=== PATIENT | female | born 1960 | race Caucasian/White ===

== ENCOUNTER 2016-09-09 16:20 | Emergency (ER) | payer BC, OTHER ==
[2016-09-09 16:27] VITALS: BP 123/83
--- NOTE | 2016-09-09 17:37 | ED ---
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 She was able to continue working, and thought it would improve, but today her pain is worse and it hurts to even hand picker her purse. She denies previous injury, N/T, incontinence of urine or stool, and no difficulty walking. - History of Current Complaint Chief Complaint: EDBackInjuryPain Stated Complaint: BACK INJURY Time Seen by Provider: 09/09/16 16:38 Hx Obtained From: Patient Onset/Duration: Sudden Onset Onset/Duration: Started Days Ago - 1 Timing: Constant Back Pain Location: Is Discrete @ - lumbar spine Severity Initially: Severe Severity Currently: Severe Pain Intensity: 7 Character: Aching, Spasmodic, Stiffness Aggravating Symptom(s): Movement Alleviating Symptom(s): Nothing Associated Signs And Symptoms: Positive: Pain with Weight Bearing. Negative: Bladder Incontinence, Bowel Incontinence Related History: Occupational Injury - Allergies/Home Medications Allergies/Adverse Reactions: Allergies Allergy/AdvReac Type Severity Reaction Status Date / Time Ketorolac Tromethamine Allergy Diarrhea Verified 09/09/16 16:25 [From Toradol] PMH/Surg Hx/FS Hx/Imm Hx Endocrine/Hematology History: Denies: Hx Diabetes, Hx Thyroid Disease Cardiovascular History: Denies: Hx Hypertension Respiratory History: Denies: Hx Asthma, Hx Chronic Obstructive Pulmonary Disease (COPD) GI History: Reports: Hx Diverticulosis Denies: Hx Ulcer Infectious Disease History: Yes Infectious Disease History: Denies: Hx Hepatitis, Hx Human Immunodeficiency Virus (HIV), Traveled Outside the [place] in Last 30 Days - Family History Known Family History: Positive: Unknown - adopted - Social History Occupation: Employed Full-time Lives: With Family Alcohol Use: None Hx Substance Use: No Substance Use Type: Reports: None Hx Tobacco Use: No Smoking Status (MU): Never Smoked Tobacco Review of Systems Positive: Myalgia. Negative: Decreased ROM, Edema Negative: Bruising Negative: Headache, Weakness, Paresthesia, Numbness All Other Systems Reviewed And Are Negative: Yes Physical Exam Triage Information Reviewed: Yes Vital Signs On Initial Exam: Initial Vitals Temp Pulse Resp BP Pulse Ox 98.3 F 100 18 123/83 99 09/09/16 16:22 09/09/16 16:22 09/09/16 16:22 09/09/16 16:22 09/09/16 16:22 Vital Signs Reviewed: Yes Appearance: Positive: Well-Appearing, Well-Nourished, Pain Distress Skin: Positive: Warm, Dry, Soft Head/Face: Positive: Normal Head/Face Inspection Eyes: Positive: EOMI, OSBALDO ENT: Positive: Hearing grossly normal Neck: Positive: Supple, Nontender Respiratory/Lung Sounds: Positive: Breath Sounds Present Cardiovascular: Positive: RRR Musculoskeletal: Positive: Limited @ - FF, rotation to right and left and extension limited by pain; 5/5 strength with hip, knee and ankle flexion/ extension, Pain @ - TTP lumbar spine and paraspinal muscles. Negative: Edema Left, Edema Right Neurological: Positive: Sensory/Motor Intact, Alert, Oriented to Person Place, Time, NV Bundle Intact Distally, Abnormal Gait - antalgic Psychiatric: Positive: Affect/Mood Appropriate AVPU Assessment: Alert Diagnostics - Vital Signs Vital Signs Temp Pulse Resp BP Pulse Ox 09/09/16 16:22 98.3 F 100 18 123/83 99 - Laboratory Lab Statement: Any lab studies that have been ordered have been reviewed, and results considered in the medical decision making process. Back Pain Course/Dx - Course Course Of Treatment: Patient's CT abd/pelvis from 08/21/17 reviewed. - Diagnoses Differential Diagnosis/HQI/PQRI: Positive: Aneurysm, Arthritis, Cauda Equina Syndrome, Compressive Cord Syndrome, Herniated Disc, Strain, Sprain Provider Diagnoses: Strain of lumbar paraspinal muscle Discharge - Discharge Plan Condition: Stable Disposition: HOME Prescriptions: Cyclobenzaprine TAB* [Flexeril TAB*] 10 mg PO TID PRN #15 tab PRN Reason: Pain Patient Education Materials: Low Back Strain (ED) Forms: *Work Release Referrals: Jahaira Fernandes MD [Primary Care Provider] - Additional Instructions: Please take 600mg of ibuprofen three times daily with meals for the next 3-5 days. Add Flexeril for muscle relaxation. Rest and use heat as well. Follow-up with your primary care provider if your symptoms do not begin to improve in the next 5-7 days. Return to the emergency department if your symptoms worsen.
== END 2016-09-09 17:45 | disposition home or self-care (01) ==
LOC: ED 16:20
DX: S39.012A Strain of muscle, fascia and tendon of lower back, initial encounter (principal); X50.0XXA Overexertion from strenuous movement or load, initial encounter; Y93.F2 Activity, caregiving, lifting; Y92.9 Unspecified place or not applicable
CPT/HCPCS: 99282

== ENCOUNTER 2016-09-22 03:43 | Emergency (ER) | payer BC ==
--- NOTE | 2016-09-22 05:29 | ED ---
Karin Mcbride Janilya, scribed for Willem Krishnamurthy MD on 09/22/16 at 0455 . Throat Pain/Nasal Congestion - HPI Summary HPI Summary: A 56 y/o female [facility] [place] w/ a sudden onset of constant epistaxis starting tonight at 0000. Pt states "it started suddenly pouring out from both nostrils". She called her neighbor for help because she started panicking. Plugging the nose did not help. Similarly, the humidifier did not alleviate pt's Sx, hence her visit today at the hospital. - History of Current Complaint Chief Complaint: EDEpistaxis Hx Obtained From: Patient Onset/Duration: Sudden Onset, Lasting Hours, Still Present Severity: Moderate Associated Signs And Symptoms: Positive: Negative - Allergies/Home Medications Allergies/Adverse Reactions: Allergies Allergy/AdvReac Type Severity Reaction Status Date / Time Ketorolac Tromethamine Allergy Diarrhea Verified 09/09/16 16:25 [From Toradol] PMH/Surg Hx/FS Hx/Imm Hx Previously Healthy: Yes Endocrine/Hematology History: Denies: Hx Diabetes, Hx Thyroid Disease Cardiovascular History: Denies: Hx Hypertension Respiratory History: Denies: Hx Asthma, Hx Chronic Obstructive Pulmonary Disease (COPD) GI History: Reports: Hx Diverticulosis Denies: Hx Ulcer Infectious Disease History: No Infectious Disease History: Denies: Hx Hepatitis, Hx Human Immunodeficiency Virus (HIV), Traveled Outside the [place] in Last 30 Days - Family History Known Family History: Positive: Unknown - adopted - Social History Alcohol Use: None Hx Substance Use: No Substance Use Type: Reports: None Hx Tobacco Use: No Smoking Status (MU): Never Smoked Tobacco Review of Systems Negative: Fever Positive: Epistaxis All Other Systems Reviewed And Are Negative: Yes Physical Exam Triage Information Reviewed: Yes Vital Signs On Initial Exam: Initial Vitals Temp Pulse Resp BP Pulse Ox 98.7 F 93 18 154/84 99 09/22/16 04:00 09/22/16 04:00 09/22/16 04:00 09/22/16 04:00 09/22/16 04:00 Vital Signs Reviewed: Yes Appearance: Positive: Well-Appearing Skin: Positive: Warm Eyes: Positive: OSBALDO ENT: Positive: Other - dried blood in nares, no active bleeding noted Neck: Positive: Supple Respiratory/Lung Sounds: Positive: Clear to Auscultation Neurological: Positive: Normal Gait Psychiatric: Positive: Anxious Diagnostics - Vital Signs Vital Signs Temp Pulse Resp BP Pulse Ox 09/22/16 04:00 98.7 F 93 18 154/84 99 - Laboratory Lab Statement: Any lab studies that have been ordered have been reviewed, and results considered in the medical decision making process. Re-Evaluation - Re-Evaluation First Eval Re-Evaluation Time: 05:30 Change: Improved - no bleeding, will d/c EENT Course/Dx - Diagnoses Provider Diagnoses: Epistaxis Discharge - Discharge Plan Condition: Stable Disposition: HOME Patient Education Materials: Nosebleed (ED) Referrals: Jahaira Fernandes MD [Primary Care Provider] - Additional Instructions: Follow up with your ENT doctor as needed. The documentation as recorded by the Karin pruitt Janilya accurately reflects the service I personally performed and the decisions made by me, Willem Krishnamurthy MD.
[2016-09-22 06:00] VITALS: BP 148/76
== END 2016-09-22 05:59 | disposition home or self-care (01) ==
LOC: ED 03:43
DX: R04.0 Epistaxis (principal)
CPT/HCPCS: 99282

== ENCOUNTER 2018-11-20 20:55 | Emergency (ER) | payer BC ==
--- NOTE | 2018-11-20 21:16 | UC ---
Eye Complaint HPI - HPI Summary HPI Summary: 58 y/o female presents to the urgent care c/o left eye redness w/ mild discharge for the past 2 days. Pt also c.o of sinus pressure and pain w/ green nasal discharge and PND, sometimes w/ foul smell. Sinus infections has been for the past 6 weeks. Pt reports, she saw he PCP about 1 month ago who Rx her Amoxicillin PO. However, she thinks she needed a longer treatment since symptoms worsen. Pain is 4/10 and pressure like. Pt denies fever, cough, dizziness, SOB, PAK, chest pain, abdominal pain, N/v/d, photophobia, visual disturbance. She has taken OTC medication w/o any improvement. - History of Current Complaint Chief Complaint: UCEye Stated Complaint: EYE IRRITATION Time Seen by Provider: 11/20/18 21:13 Hx Obtained From: Patient Onset/Duration: Gradual Onset, Lasting Weeks - 6 weeks, Worse Since - 2 days ago w/ left eye redness and discharge Timing: Constant Severity Initially: Mild Severity Currently: Moderate Pain Intensity: 4 Pain Scale Used: 0-10 Numeric Location of Injury: Conjunctiva - left eye Character: Dull Aggravating Factor(s): Other - sinus congestion and drainage Alleviating Factor(s): Nothing Associated Signs And Symptoms: Positive: Drainage (Purulent) - mild onleft eye. Negative: Photophobia, Drainage (Clear), Vision Impairment Bilateral - Risk Factors Penetrating Injury Risk Factor: Negative Globe Rupture Risk Factors: Negative Acute Glaucoma Risk Factors: Negative Optic Artery Occlusion Risk Factors: Negative - Allergies/Home Medications Allergies/Adverse Reactions: Allergies Allergy/AdvReac Type Severity Reaction Status Date / Time ketorolac [From Toradol] AdvReac Diarrhea Verified 11/20/18 21:05 Home Medications: Home Medications Vitamins* 11/20/18 [History] PMH/Surg Hx/FS Hx/Imm Hx Previously Healthy: Yes Endocrine History: Diabetes Cardiovascular History: Hypertension Other Respiratory History: recurrent sinusitis - Surgical History Surgical History: Yes Surgery Procedure, Year, and Place: TUBAL LIGATION - Family History Known Family History: Positive: Unknown - adopted - Social History Occupation: Employed Full-time Lives: With Family Alcohol Use: None Substance Use Type: None Smoking Status (MU): Former Smoker Review of Systems All Other Systems Reviewed And Are Negative: Yes Constitutional: Positive: Negative Skin: Positive: Negative Eyes: Positive: Drainage - mild yellowish, Eye Redness - left eye ENT: Positive: Nasal Discharge - yellowish, Sinus Congestion, Sinus Pain/ Tenderness, Other - PND Respiratory: Positive: Negative Cardiovascular: Positive: Negative Gastrointestinal: Positive: Negative Genitourinary: Positive: Negative Motor: Positive: Negative Neurovascular: Positive: Negative Musculoskeletal: Positive: Negative Neurological: Positive: Negative Psychological: Positive: Negative Is Patient Immunocompromised?: No Physical Exam - Summary Physical Exam Summary: Vitals: reviewed General: Well developed, well-nourished female patient with NAD. Head and face: Normocephalic and atraumatic, Positive tenderness over the frontal and maxillary sinuses.. Eyes: Positive: LF Conjunctiva Inflamed - Visual acuity: WNL,Visual saldana: full to confrontation. PERRLA, EOMI intact w/out limitation or complaint of pain. eyelashes clear. mild tearing and yellowish drainage observed on left eye. No ciliary flush. No chemosis, No photophobia. Normal fundoscopic exam; no proptosis, exophthalmos, nystagmus. ENT: Ears and TM with normal limits. Nose: edematous and erythematous nasal mucosa with with yellowish discharge and erythematous mucosa. Pharynx with erythema, no exudate. Positive moderate yellowish PND Neck: Supple, no JVD, no carotid bruits and no lymphadenopathy. Lungs: clear, no rales, no rhonchi, no wheezes. CVS: RRR, S1 and S2 present no murmurs or gallops appreciated. Abdomen: soft nontender with positive bowel sounds. Extremities: no edema noted. Neuro: WNL. Skin: warm and dry Triage Information Reviewed: Yes Vital Signs: Initial Vital Signs Temp 97.9 F 11/20/18 21:00 Pulse 88 11/20/18 21:00 Resp 16 11/20/18 21:00 BP 149/80 11/20/18 21:00 Pulse Ox 99 11/20/18 21:00 Eye Complaint Course/Dx - Course Course Of Treatment: 58 y/o female presents to the urgent care c/o left eye redness w/ mild discharge for the past 2 days. Pt also c.o of sinus pressure and pain w/ green nasal discharge and PND, sometimes w/ foul smell. Sinus infections has been for the past 6 weeks. Pt reports, she saw he PCP about 1 month ago who Rx her Amoxicillin PO. However, she thinks she needed a longer treatment since symptoms worsen. Pain is 4/10 and pressure like. Pt denies fever, cough, dizziness, SOB, PAK, chest pain, abdominal pain, N/v/d, photophobia, visual disturbance. She has taken OTC medication w/o any improvement. Hx obtained. Pt w/ acute bacterial sinusitis and left eye bacterial conjunctivitis one examination. Pt with 6 weeks of symptoms getting worse. Pt Rx doxycycline PO and flonase nasal spray. first dose givne at the clinic tonight. Pt also Rx polytrim ophtalmic drops as directed below. Pt advised if symptoms do not improve or worsen to f/u with [facility] or PCP for further management.Pt' s BP is elevated today advised to decrease salt in diet, monitor BP and f/u with PCP for further management. Discharge instructions explained. Pt understood and agreed with plan of care. - Differential Dx/Diagnosis Differential Diagnosis/HQI/PQRI: Conjunctivitis, Penetrating Injury, Periorbital Cellulitis, Orbital Cellulitis, Uveitis, Other - sinusitis Provider Diagnosis: Acute bacterial sinusitis, Bacterial conjunctivitis of left eye, Uncontrolled hypertension Discharge - Sign-Out/Discharge Documenting (check all that apply): Patient Departure All imaging exams completed and their final reports reviewed: No Studies - Discharge Plan Condition: Stable Disposition: HOME Prescriptions: DOXYcycline CAP(*) [DOXYcycline 100MG CAP(*)] 100 mg PO BID #19 cap Fluticasone NASAL SPRAY 50MCG* [Flonase NASAL SPRAY 50MCG*] 2 spray BOTH NARES DAILY #1 btl Polymyx/Trimethoprim OPTH* [Polytrim OPHTH*] 1 drop LEFT EYE Q3H #1 btl Patient Education Materials: Sinusitis (ED), Conjunctivitis (ED) Referrals: Ronnie Figueroa, [employer] [Primary Care Provider] - 3 Days Additional Instructions: 1- Please increase fluid intake and rest. take full course of antibiotic to avoid resistance. Please take yogurt w/ probiotics or culturelle to protect your GI system 2-Use Flonase as directed to help drain fluid. Also buy saline drops to clear sinuses 3-Apply ophthalmic drops as directed on your left eye. Encourage hand washing to avoid spread. 4-Return to the clinic or PCP if symptoms do not improve for further management and treatment 5- Your BP is elevated today. please decrease salt in your diet, monitor BP and if it continues to be elevated please f/u with your PCP for further management. - Billing Disposition and Condition Condition: STABLE Disposition: Home
[2018-11-20] MEDS ORDERED: DOXYcycline CAP(*) 100 MG PO ONE (21:35)
[2018-11-20 22:02] VITALS: BP 138/70
== END 2018-11-20 22:00 | disposition home or self-care (01) ==
LOC: UCEAST 20:55
DX: J01.90 Acute sinusitis, unspecified (principal); J32.9 Chronic sinusitis, unspecified; B96.89 Other specified bacterial agents as the cause of diseases classified elsewhere; H10.32 Unspecified acute conjunctivitis, left eye; I10 Essential (primary) hypertension; E11.9 Type 2 diabetes mellitus without complications; Z87.891 Personal history of nicotine dependence; Z88.3 Allergy status to other anti-infective agents
CPT/HCPCS: 99212; A9270-GY; G0463

== ENCOUNTER 2019-01-11 21:52 | Emergency (ER) | payer BC ==
[2019-01-11 22:32] LABS: ABS Basophils 0.1 10^3/ul (0-0.2); ABS Eosinophils 0.2 10^3/ul (0-0.6); ABS Lymphocytes 1.7 10^3/ul (1.0-4.8); ABS Monocytes 0.5 10^3/ul (0-0.8); ABS Neutrophils 3.6 10^3/ul (1.5-7.7); Eosinophil % 2.6 %; Hematocrit 37 % (35-47); Hemoglobin 12.4 g/dL (12.0-16.0); Lymphocyte % 28.7 %; Mean Corpuscular HGB Conc 33 g/dL (31-36); Mean Corpuscular Hemoglobin 29 pg (27-31); Mean Corpuscular Volume 88 fL (80-97); Mean Platelet Volume 8.5 fL (7.4-10.4); Nucleated Red Blood Cells % 0.1; Platelet Count 201 10^3/uL (150-450); Red Blood Count 4.25 10^6 /uL (3.70-4.87); Red Cell Distribution Width 14 % (10.5-15); White Blood Count 5.9 10^3/uL (3.5-10.8)
[2019-01-11 22:48] LABS: Albumin 4.1 g/dL (3.2-5.2); Albumin/Globulin Ratio 1.4 (1-3); BUN/Creatinine Ratio 27.8 (8-20); C Reactive Protein 2.99 mg/L (<8.01); Calcium 9.3 mg/dL (8.6-10.3); EGFR African American 100.7 (>60); EGFR Non-African American 83.2 (>60); Potassium 3.8 mmol/L (3.5-5.0); Total Bilirubin 0.3 mg/dL (0.2-1.0); Total Protein 7.1 g/dL (6.4-8.9)
--- NOTE | 2019-01-11 23:37 | ED ---
Palpitations / Dysrhythmia - HPI Summary HPI Summary: Patient complains of palpitations that occur intermittently and cause her to cough x 2 weeks. Also complains of intermittent episodes of pain in left side 2 over the past week. Triage note states patient complains of SOB, however during history of present illness patient clarified by stating she just has a sensation that it is difficult to breathe deeply when palpitations or left- sided chest pain occur, denies actual shortness of breath. Episodes of left sided chest pain lasted for about 10 seconds and then self resolved. Palpitations and left-sided chest pain occur randomly, not related to exertion. Denies fever, sore throat, headache, neck stiffness, CP, SOB, N/V/D, abdominal pain, change in urine, change in BM. Denies prior cardiac history. Former smoker, quit in 2008. Denies estrogen supplements, history of blood clots, recent surgery or trauma, history of long travel, history of immobility, history of unilateral leg pain, history of hemoptysis. - History of Current Complaint Chief Complaint: EDDysrhythmPalp Time Seen by Provider: 01/11/19 22:03 Hx Obtained From: Patient Onset/Duration: Lasting Days Timing: Intermittent Episodes Lasting: Severity Initially: Mild Severity Currently: Mild Character: Fluttering Aggravating: Nothing Alleviating: Nothing Associated Signs & Symptoms: Lightheadedness - Allergy/Home Medications Allergies/Adverse Reactions: Allergies Allergy/AdvReac Type Severity Reaction Status Date / Time ketorolac [From Toradol] AdvReac Diarrhea Verified 11/20/18 21:05 PMH/Surg Hx/FS Hx/Imm Hx Endocrine/Hematology History: Denies: Hx Diabetes, Hx Thyroid Disease Cardiovascular History: Denies: Hx Hypertension Respiratory History: Denies: Hx Asthma, Hx Chronic Obstructive Pulmonary Disease (COPD) GI History: Reports: Hx Diverticulosis Denies: Hx Ulcer History: Denies: Hx Dialysis Sensory History: Denies: Hx Eye Prosthesis Opthamlomology History: Denies: Hx Legally Blind EENT History: Denies: Hx Deafness Neurological History: Denies: Hx Dementia Psychiatric History: Denies: Hx Autism - Surgical History Surgery Procedure, Year, and Place: TUBAL LIGATION Infectious Disease History: No Infectious Disease History: Denies: Hx Hepatitis, Hx Human Immunodeficiency Virus (HIV), Traveled Outside the [place] in Last 30 Days - Family History Known Family History: Positive: Unknown - adopted - Social History Alcohol Use: None Hx Substance Use: No Substance Use Type: Reports: None Hx Tobacco Use: No Smoking Status (MU): Former Smoker Review of Systems Constitutional: Negative Eyes: Negative ENT: Negative Positive: Palpitations Positive: Cough Gastrointestinal: Negative Genitourinary: Negative Musculoskeletal: Negative Skin: Negative Neurological: Negative Psychological: Normal All Other Systems Reviewed And Are Negative: Yes Physical Exam - Summary Physical Exam Summary: Left-sided chest wall pain not reproducible. Lung sounds clear to auscultation bilaterally. RRR. No peripheral edema. Triage Information Reviewed: Yes Vital Signs On Initial Exam: Initial Vitals Temp Pulse Resp BP Pulse Ox 98.2 F 88 16 109/72 97 01/11/19 21:53 01/11/19 21:53 01/11/19 21:53 01/11/19 21:53 01/11/19 21:53 Vital Signs Reviewed: Yes Appearance: Positive: Well-Appearing Skin: Positive: Warm Head/Face: Positive: Normal Head/Face Inspection Eyes: Positive: Normal ENT: Positive: Normal ENT inspection Neck: Positive: Supple Respiratory/Lung Sounds: Positive: Clear to Auscultation Cardiovascular: Positive: Normal Abdomen Description: Positive: Nontender Musculoskeletal: Positive: Normal Neurological: Positive: Normal Psychiatric: Positive: Normal AVPU Assessment: Alert - [place] Coma Scale Best Eye Response: 4 - Spontaneous Best Motor Response: 6 - Obeys Commands Best Verbal Response: 5 - Oriented Coma Scale Total: 15 Diagnostics - Vital Signs Vital Signs Temp Pulse Resp BP Pulse Ox 01/11/19 22:07 76 129/77 96 01/11/19 22:06 78 96 01/11/19 21:53 98.2 F 88 16 109/72 97 - Laboratory Lab Results: Lab Results 01/11/19 01/11/19 Range/Units 22:20 22:21 WBC 5.9 (3.5-10.8) 10^3/uL RBC 4.25 (3.70-4.87) 10^6 /uL Hgb 12.4 (12.0-16.0) g/dL Hct 37 (35-47) % MCV 88 (80-97) fL MCH 29 (27-31) pg MCHC 33 (31-36) g/dL RDW 14 (10.5-15) % Plt Count 201 (150-450) 10^3/uL MPV 8.5 (7.4-10.4) fL Neut % (Auto) 59.9 % Lymph % (Auto) 28.7 % Storey % (Auto) 7.9 % Eos % (Auto) 2.6 % Baso % (Auto) 0.9 % Absolute Neuts (auto) 3.6 (1.5-7.7) 10^3/ul Absolute Lymphs (auto) 1.7 (1.0-4.8) 10^3/ul Absolute Monos (auto) 0.5 (0-0.8) 10^3/ul Absolute Eos (auto) 0.2 (0-0.6) 10^3/ul Absolute Basos (auto) 0.1 (0-0.2) 10^3/ul Absolute Nucleated RBC 0.0 10^3/ul Nucleated RBC % 0.1 Sodium 138 (135-145) mmol/L Potassium 3.8 (3.5-5.0) mmol/L Chloride 106 (101-111) mmol/L Carbon Dioxide 25 (22-32) mmol/L Anion Gap 7 (2-11) mmol/L BUN 20 (6-24) mg/dL Creatinine 0.72 (0.51-0.95) mg/dL Est GFR ( Amer) 100.7 (>60) Est GFR (Non-Af Amer) 83.2 (>60) BUN/Creatinine Ratio 27.8 H (8-20) Glucose 134 H (70-100) mg/dL Calcium 9.3 (8.6-10.3) mg/dL Total Bilirubin 0.30 (0.2-1.0) mg/dL AST 18 (13-39) U/L ALT 13 (7-52) U/L Alkaline Phosphatase 56 (34-104) U/L C-Reactive Protein 2.99 (<8.01) mg/L Total Protein 7.1 (6.4-8.9) g/dL Albumin 4.1 (3.2-5.2) g/dL Globulin 3.0 (2-4) g/dL Albumin/Globulin Ratio 1.4 (1-3) Result Diagrams: 01/11/19 22:21 01/11/19 22:20 Lab Statement: Any lab studies that have been ordered have been reviewed, and results considered in the medical decision making process. Course/Dx - Course Course Of Treatment: Patient complains of palpitations that occur intermittently and cause her to cough x 2 weeks. Also complains of intermittent episodes of pain in left side 2 over the past week. Triage note states patient complains of SOB, however during history of present illness patient clarified by stating she just has a sensation that it is difficult to breathe deeply when palpitations or left-sided chest pain occur, denies actual shortness of breath. Episodes of left sided chest pain lasted for about 10 seconds and then self resolved. Palpitations and left-sided chest pain occur randomly, not related to exertion. Denies fever, sore throat, headache, neck stiffness, CP, SOB, N/V/D, abdominal pain, change in urine, change in BM. Denies prior cardiac history. Former smoker, quit in 2008. Denies estrogen supplements, history of blood clots, recent surgery or trauma, history of long travel, history of immobility, history of unilateral leg pain, history of hemoptysis. Physical exam:Left-sided chest wall pain not reproducible. Lung sounds clear to auscultation bilaterally. RRR. No peripheral edema. Vital signs within normal limits. BUN/creatinine ratio 27. Labs otherwise unremarkable. EKG sinus rhythm. Chest x-ray negative for acute process. Advised patient to follow-up with primary care for possible stress test and Holter monitor. Patient understands and approves of plan. - Diagnoses Provider Diagnoses: Palpitations, Left-sided chest wall pain Discharge - Sign-Out/Discharge Documenting (check all that apply): Patient Departure Patient Received Moderate/Deep Sedation with Procedure: No - Discharge Plan Condition: Stable Disposition: HOME Patient Education Materials: Heart Palpitations (ED) Referrals: Ronnie Figueroa NP [Primary Care Provider] - Landon Cooper MD [Medical Doctor] - Additional Instructions: Follow-up with primary care and cardiology Dr. Cooper to arrange for stress test and Holter monitor for further evaluation of palpitations. Return to the ED for any new or worsening symptoms. - Billing Disposition and Condition Condition: STABLE Disposition: Home
[2019-01-12 01:29] VITALS: BP 119/71
== END 2019-01-12 01:36 | disposition home or self-care (01) ==
LOC: ED 21:52
DX: R00.2 Palpitations (principal); R07.89 Other chest pain; Z87.891 Personal history of nicotine dependence
CPT/HCPCS: 36415; 71046; 80053; 84484; 85025; 86140; 93005; 99283

== ENCOUNTER 2019-06-27 20:57 | Emergency (ER) | payer BC ==
[2019-06-27] MEDS ORDERED: Oxymetazoline 0.05% NASAL SPR* 15 ML BTL LEFT NARE ONE (21:13)
--- OUTSIDE RECORDS SUMMARY | 2019-06-27 21:23 | XMS REPORT | Continuity of Care Document ---
:1960 External Reference #:[id number] Author Name Doni John, OD Address [address] [place] [address] Care Team Providers Name Role Phone Lucinda Schafer NP Care Team Information Orthotic And Prosthetic Technician [phone] Problems Active Problems Provider Date Presbyopia Doni Maya O.D. Onset: 04/28/2014 Hypermetropia Doni Maya O.D. 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 Social History Type Date Description Comments Sex Unknown ETOH Use Denies alcohol use Tobacco Use Start: Unknown End: Unknown Patient is a former smoker Smoking Status Reviewed: 06/04/19 Patient is a former smoker Allergies, Adverse Reactions, Alerts Active Allergies Reaction Severity Comments Date Toradol 04/28/2014 Seasonal 04/28/2014 Medications Description No Active Medications Immunizations Description No Information Available Vital Signs Date Vital Result Comment 06/04/2019 12:37pm Intraocular Pressure Right Eye 18 mmHg Intraocular Pressure Left Eye 17 mmHg 12/03/2018 11:07am Intraocular Pressure Right Eye 15 mmHg Intraocular Pressure Left Eye 15 mmHg Results Description No Information Available Procedures Date Code Description Status 06/04/2019 39060 Fundus Photography W/Interpretation & Report Completed 06/04/2019 32859 Refraction Completed 06/04/2019 69926 Eye Exam Est Comprehensive Completed Medical Devices Description No Information Available Encounters Description No Information Available Assessments Date Code Description Provider 06/04/2019 H40.013 Open angle with borderline findings, low risk, Doni John, OD bilateral 06/04/2019 H04.123 Dry eye syndrome of bilateral lacrimal glands Doni John, OD 06/04/2019 H25.13 Age-related nuclear cataract, bilateral Doni Alvaro, OD 06/04/2019 H52.4 Presbyopia Doni John, OD Plan of Treatment Future Appointment(s):12/06/2019 10:45 am - Doni John, OD [facility]2019 - Doni John, ODH40.013 Open angle with borderline findings, low risk , gtjwjijvdS88.123 Dry eye syndrome of bilateral lacrimal ypueipX20.13 Age- related nuclear cataract, xrtbvfloqH45.4 PresbyopiaFollow up:6 mos VF/OCT nerve , sooner PRN Functional Status Description No Information Available Mental Status Description No Information Available Referrals Description No Information Available
--- NOTE | 2019-06-27 21:34 | ED ---
Throat Pain/Nasal Congestion - HPI Summary HPI Summary: Pt is a 59 y/o F presenting to the ED with a chief complaint of epistaxis initially onset about 2 hours ago. She experienced a similar episode about 2 years ago that did not resolve after multiple hours. She states the blood seems very thin. She denies any other sx including nausea or vomiting, and is not on blood thinners. - History of Current Complaint Chief Complaint: EDEpistaxis Time Seen by Provider: 06/27/19 21:03 Hx Obtained From: Patient Onset/Duration: Sudden Onset, Lasting Hours, Still Present Severity: Moderate Associated Signs And Symptoms: Positive: Negative Cough: None - Allergies/Home Medications Allergies/Adverse Reactions: Allergies Allergy/AdvReac Type Severity Reaction Status Date / Time ketorolac [From Toradol] AdvReac Diarrhea Verified 06/27/19 20:59 PMH/Surg Hx/FS Hx/Imm Hx Previously Healthy: Yes Endocrine/Hematology History: Denies: Hx Diabetes, Hx Thyroid Disease Cardiovascular History: Denies: Hx Hypertension Respiratory History: Denies: Hx Asthma, Hx Chronic Obstructive Pulmonary Disease (COPD) GI History: Reports: Hx Diverticulosis Denies: Hx Ulcer History: Denies: Hx Dialysis Sensory History: Denies: Hx Eye Prosthesis, Hx Legally Blind, Hx Deafness Opthamlomology History: Denies: Hx Eye Prosthesis, Hx Legally Blind Neurological History: Denies: Hx Dementia Psychiatric History: Denies: Hx Autism - Surgical History Surgery Procedure, Year, and Place: TUBAL LIGATION Infectious Disease History: No Infectious Disease History: Denies: Hx Hepatitis, Hx Human Immunodeficiency Virus (HIV), Traveled Outside the [place] in Last 30 Days - Family History Known Family History: Positive: Unknown - adopted - Social History Alcohol Use: None Hx Substance Use: No Substance Use Type: Reports: None Hx Tobacco Use: No Smoking Status (MU): Former Smoker Review of Systems Positive: Epistaxis Negative: Vomiting, Nausea All Other Systems Reviewed And Are Negative: Yes Physical Exam - Summary Physical Exam Summary: Constitutional: Well-developed, Well-nourished, Alert. (-) Distressed Skin: Warm, Dry HENT: Normocephalic; Atraumatic. Trickling blood out of R nare. No blood in pharynx. Eyes: Conjunctiva normal Neck: Musculoskeletal ROM normal neck. (-) JVD, (-) Stridor, (-) Tracheal deviation Cardio: Rhythm regular, rate normal, Heart sounds normal; Intact distal pulses; Radial pulses are 2+ and symmetric. (-) Murmur Pulmonary/Chest wall: Effort normal. (-) Respiratory distress, (-) Wheezes, (-) Rales Abd: Soft, (-) tenderness, (-) Distension, (-) Guarding, (-) Rebound Musculoskeletal: (-) Edema Lymph: (-) Cervical adenopathy Neuro: Alert, Oriented x3 Psych: Mood and affect Normal Triage Information Reviewed: Yes Vital Signs On Initial Exam: Initial Vitals Temp Pulse Resp BP Pulse Ox 98.1 F 107 16 164/81 97 06/27/19 20:58 06/27/19 20:58 06/27/19 20:58 06/27/19 20:58 06/27/19 20:58 Vital Signs Reviewed: Yes Procedures - Sedation Patient Received Moderate/Deep Sedation with Procedure: No Diagnostics - Vital Signs Vital Signs Temp Pulse Resp BP Pulse Ox 06/27/19 20:58 98.1 F 107 16 164/81 97 - Laboratory Lab Statement: Any lab studies that have been ordered have been reviewed, and results considered in the medical decision making process. Re-Evaluation - Re-Evaluation 1st re-eval Re-Evaluation Time: 21:29 Change: Unchanged Comment: Took nose clamps off of pt. She has mild trickling blood from her R nare with clots. Sprayed afrin and told pt to hold her nose shut for 15 minutes. 2nd re-eval Re-Evaluation Time: 22:03 Change: Unchanged Comment: Pt still has a small trickle nare. I applied 500mg TXA to two 2x2 and inserted into the bilateral nares. 3rd re-eval Re-Evaluation Time: 22:49 Change: Improved Comment: Pt has stopped bleeding. Will continue to monitor. EENT Course/Dx - Course Course Of Treatment: Patient is here with epistaxis. Patient's hemodynamics stable overall well-appearing upon arrival. Patient had trickling of lot out of her right nares. Patient cleared clots out of her nose, had Afrin sprayed on her nose, not pressure with minimal relief. Patient had her nostrils packed with TXA-soaked gauze which did help her symptoms. Patient was monitored with resolution of her bleeding. Control with discharge. - Diagnoses Provider Diagnoses: Epistaxis Discharge ED - Sign-Out/Discharge Documenting (check all that apply): Patient Departure - Discharge Plan Condition: Stable Disposition: HOME Patient Education Materials: Nosebleed (ED) Referrals: Ronnie Figueroa NP [Primary Care Provider] - Brett Benítez MD [Medical Doctor] - Additional Instructions: If you have another nosebleed, apply pressure like you were shown tonight for 30min without looking. You can put ice on your nose as well. If you continue to bleed, come back to the hospital. Call Dr. Benítez in the morning. - Billing Disposition and Condition Condition: STABLE Disposition: Home - Attestation Statements Document Initiated by Sandraibe: Yes Documenting Scribe: Adamaris Larios Provider For Whom Jairo is Documenting (Include Credential): Moises Mckeon MD. Scribe Attestation: Adamaris Mcbride scribed for Moises Mckeon MD. on 06/27/19 at 2356. Scribe Documentation Reviewed: Yes Provider Attestation: The documentation as recorded by the sandraibeAdamaris accurately reflects the service I personally performed and the decisions made by , Moises Mckeon MD. Status of Scribe Document: Viewed
[2019-06-27] MEDS ORDERED: Tranexamic Acid 1,000 MG/10 ML SDV TOPICAL ONE (21:55)
[2019-06-28 00:07] VITALS: BP 129/70
== END 2019-06-28 00:06 | disposition home or self-care (01) ==
LOC: ED 20:57
DX: R04.0 Epistaxis (principal); Z87.891 Personal history of nicotine dependence; Z88.5 Allergy status to narcotic agent
CPT/HCPCS: 99282; A9270-GY

== ENCOUNTER 2019-06-30 19:28 | Emergency (ER) | payer BC ==
--- OUTSIDE RECORDS SUMMARY | 2019-06-30 19:33 | XMS REPORT | Continuity of Care Document ---
:1960 External Reference #:[id number] Author Name Prakash Hernandes M.D. Address [address] [place] [address] Care Team Providers Name Role Phone Ronnie Figueroa F.N.P. Care Team Information Colorer [phone] Problems Description No Information Available Social History Type Date Description Comments Sex Unknown Tobacco Use Start: Unknown End: Former Cigarette Smoker X 20 YRS quit age 49 Unknown 5-10 Cigarettes Daily Tobacco Use Start: Unknown Never Smoked Cigars Tobacco Use Start: Unknown Never Smoked A Pipe Smokeless Tobacco Never Used Smokeless Tobacco ETOH Use Denies alcohol use Tobacco Use Start: Unknown End: Patient is a former Unknown smoker Smoking Status Reviewed: 06/29/19 Patient is a former smoker Allergies, Adverse Reactions, Alerts Active Allergies Reaction Severity Comments Date Ketorolac Tromethamine 06/28/2019 Tramadol 06/28/2019 Medications Active Medications SIG Qnty Indications Ordering Provider Date Daily Multiple Vitamins Unknown Tablets Immunizations Description No Information Available Vital Signs Date Vital Result Comment 06/29/2019 10:18am Weight 182.00 lb Weight 82.555 kg Height 64.50 inches 5'4.50" Height in cm's 163.8 cm BMI (Body Mass Index) 30.8 kg/m2 06/28/2019 11:05am Weight 182.00 lb Weight 82.555 kg Height 64.50 inches 5'4.50" Height in cm's 163.8 cm BMI (Body Mass Index) 30.8 kg/m2 Results Description No Information Available Procedures Date Code Description Status 06/28/2019 73667 Contol Nasal Hemorrhage, Anterior, Simple Completed Medical Devices Description No Information Available Encounters Type Date Location Provider Dx Diagnosis Office Visit 06/29/2019 Margie Victoria J01.90 Acute sinusitis, 10:15a 08/25/07 Marcus Hernandes unspecified J04.0 Acute laryngitis Assessments Date Code Description Provider 06/29/2019 J01.90 Acute sinusitis, unspecified Prakash Hernandes M.D. 06/29/2019 J04.0 Acute laryngitis Prakash Hernandes M.D. 06/28/2019 R04.0 Epistaxis Prakash Hernandes M.D. Plan of Treatment 06/29/2019 - Prakash Hernandes M.D.J01.90 Acute sinusitis, unspecifiedComments:The patient hs an acute sinusitis and laryngitis. I have recommended she take some time of from work, stay hydrated and eat chicken soup. Ibuprofen, Tylenol and cold remedies as needed. She bought some Mucinex.J04.0 Acute laryngitis Functional Status Description No Information Available Mental Status Description No Information Available Referrals Description No Information Available
--- OUTSIDE RECORDS SUMMARY | 2019-06-30 19:33 | XMS REPORT | Continuity of Care Document ---
:02/05/1950 External Reference #:[id number] Author Name Prakash Hernandes M.D. Address [address] [place] [address] Care Team Providers Name Role Phone Ronnie Figueroa F.N.P. Care Team Information Clerical Grader [phone] Problems Description No Information Available Social History [...] a former Unknown smoker Smoking Status Reviewed: 06/28/19 Patient is a former smoker Allergies, Adverse Reactions, Alerts Active Allergies Reaction Severity Comments Date Ketorolac Tromethamine 06/28/2019 Tramadol 06/28/2019 Medications Active Medications SIG Qnty Indications Ordering Provider Date Daily Multiple Vitamins Unknown Tablets Immunizations Description No Information Available Vital Signs Date Vital Result Comment 06/28/2019 11:05am Weight 182.00 lb Weight 82.555 kg Height 64.50 inches 5'4.50" Height in cm's 163.8 cm BMI (Body Mass Index) 30.8 kg/m2 Results Description No Information Available Procedures Date Code Description Status 06/28/2019 19353 Contol Nasal Hemorrhage, Anterior, Simple Completed Medical Devices Description No Information Available Encounters Description No Information Available Assessments Date Code Description Provider 06/28/2019 R04.0 Epistaxis Prakash Hernandes M.D. Plan of Treatment No Information Available Functional Status Description No Information Available Mental Status Description No Information Available Referrals Description No Information Available
[2019-06-30 19:55] VITALS: BP 110/69
--- NOTE | 2019-06-30 20:06 | UC ---
Ear Complaint HPI - HPI Summary HPI Summary: 59 yo female presents with URI symptoms. She tells me that for the last 5 days she has had sinus pain/pressure/congestion, sore throat, and left ear pain that has worsened in the last day. She also notes some malodorous urine. She has been taking ibuprofen with little relief. Denies fever, chills, cough, SOB, chest pain, rash, abdominal pain, n/v. - History of Current Complaint Chief Complaint: UCEar Stated Complaint: EAR PAIN Time Seen by Provider: 06/30/19 20:05 Hx Obtained From: Patient Onset/Duration: Gradual Onset Severity Initially: Mild Severity Currently: Moderate Pain Intensity: 8 Pain Scale Used: 0-10 Numeric - Allergies/Home Medications Allergies/Adverse Reactions: Allergies Allergy/AdvReac Type Severity Reaction Status Date / Time ketorolac [From Toradol] AdvReac Diarrhea Verified 06/27/19 20:59 Home Medications: Home Medications Ibuprofen 400 mg PO Q6HR PRN 06/30/19 [History Confirmed 06/30/19] PMH/Surg Hx/FS Hx/Imm Hx - Additional Past Medical History Additional PMH: None - Surgical History Surgical History: Yes Surgery Procedure, Year, and Place: TUBAL LIGATION. WIDSOM TEET - Family History Known Family History: Positive: Unknown - adopted - Social History Lives: With Family Alcohol Use: None Substance Use Type: None Smoking Status (MU): Former Smoker Review of Systems All Other Systems Reviewed And Are Negative: No Constitutional: Positive: Negative Skin: Positive: Negative Eyes: Positive: Negative ENT: Positive: Sore Throat, Ear Ache, Nasal Discharge, Sinus Congestion, Sinus Pain/Tenderness Respiratory: Positive: Negative Cardiovascular: Positive: Negative Gastrointestinal: Positive: Negative Genitourinary: Positive: Other - malodorous urine Neurological: Positive: Negative Psychological: Positive: Negative Physical Exam - Summary Physical Exam Summary: GENERAL: NAD. WDWN. No pain distress. SKIN: No rashes, sores, lesions, or open wounds. HEENT: Head: AT/NC Eyes: EOM intact. Conjunctiva clear without inflammation or discharge. Ears: Hearing grossly normal. LEFT TM with mild erythema and bulging. No canal edema or drainage. Nose: Nasal mucosa pink and moist with mild erythema. TTP maxillary > frontal sinus. Throat: Posterior oropharynx without exudates, erythema, or tonsillar enlargement. Uvula midline. NECK: Supple. Nontender. No lymphadenopathy. CHEST: CTAB. No r/r/w. No accessory muscle use. Breathing comfortably and in no distress. CV: RRR. Without m/r/g. Pulses intact. ABDOMEN: Soft. NTTP. No distention or guarding. No CVA tenderness. Bowel sounds present NEURO: Alert. PSYCH: Age appropriate behavior. Triage Information Reviewed: Yes Vital Signs: Initial Vital Signs Temp 99.4 F 06/30/19 19:51 Pulse 93 06/30/19 19:51 Resp 18 06/30/19 19:51 BP 110/69 06/30/19 19:51 Pulse Ox 97 06/30/19 19:51 Laboratory Tests 06/30/19 20:21 POC Urine Color Yellow POC Urine Clarity Clear POC Urine pH 5.0 POC Ur Specif [place] 1.025 POC Urine Protein Negative POC Ur Glucose (UA) Negative POC Urine Ketones Negative POC Urine Blood 1+ A POC Urine Nitrite Negative POC Urine Bilirubin Negative POC Urine Urobilinogen 0.2 POC U Leukocyte Esteras Trace A Vital Signs Reviewed: Yes Ear Complaint Course/Dx - Course Course Of Treatment: Left otitis media - Differential Dx/Diagnosis Provider Diagnosis: Otitis media Discharge ED - Sign-Out/Discharge Documenting (check all that apply): Patient Departure All imaging exams completed and their final reports reviewed: No Studies - Discharge Plan Condition: Stable Disposition: HOME Prescriptions: Amoxicillin PO (*) [Amoxicillin 875 MG (*)] 875 mg PO BID #14 tab Patient Education Materials: Ear Infection (ED) Referrals: Ronnie Figueroa [employer] [Primary Care Provider] - Additional Instructions: If you develop a fever, shortness of breath, chest pain, new or worsening symptoms - please call your PCP or go to the ED immediately. - Billing Disposition and Condition Condition: STABLE Disposition: Home
[2019-06-30] MEDS ORDERED: Amoxicillin PO (*) 500 MG CAP PO ONE (20:33)
== END 2019-06-30 21:00 | disposition home or self-care (01) ==
LOC: UCEAST 19:28
DX: H66.92 Otitis media, unspecified, left ear (principal); Z88.6 Allergy status to analgesic agent
CPT/HCPCS: 81003; 87086; 99212; A9270-GY; G0463

== ENCOUNTER 2019-07-12 06:14 | Emergency (ER) | payer BC ==
[2019-07-12] MEDS ORDERED: Albuterol 2.5 MG/3 ML NEB.SOL* (0.083%) INH ONE (06:37)
--- NOTE | 2019-07-12 06:39 | ED ---
Respiratory - HPI Summary HPI Summary: Pt. is a 59 y.o female who presents to the ER for ongoing productive cough and shortness of breath. Pt. states she has had an URI for about two weeks and feels it has moved into her chest this past week. Pt. was seen at last week and rx augmentin for an ear infection. Pt. states she woke up this morning and felt very short of breath. She states she then started coughing up mucus and then started feeling better. Past hx of smoking. Denies hx of HTN, DM, HDL. Sxs are moderate in severity. No current modifying factors. - History of Current Complaint Chief Complaint: EDUpperRespComplaint Stated Complaint: SICK PER PT Time Seen by Provider: 07/12/19 06:26 Hx Obtained From: Patient Pain Intensity: 0 - Allergy/Home Medications Allergies/Adverse Reactions: Allergies Allergy/AdvReac Type Severity Reaction Status Date / Time ketorolac [From Toradol] AdvReac Diarrhea Verified 07/12/19 06:17 PMH/Surg Hx/FS Hx/Imm Hx Previously Healthy: Yes Endocrine/Hematology History: Denies: Hx Diabetes, Hx Thyroid Disease Cardiovascular History: Denies: Hx Hypertension Respiratory History: Denies: Hx Asthma, Hx Chronic Obstructive Pulmonary Disease (COPD) GI History: Reports: Hx Diverticulosis Denies: Hx Ulcer History: Denies: Hx Dialysis Sensory History: Denies: Hx Eye Prosthesis, Hx Legally Blind, Hx Deafness Opthamlomology History: Denies: Hx Eye Prosthesis, Hx Legally Blind Neurological History: Denies: Hx Dementia Psychiatric History: Denies: Hx Autism - Surgical History Surgery Procedure, Year, and Place: TUBAL LIGATION. WIDSOM TEET Infectious Disease History: No Infectious Disease History: Denies: Hx Hepatitis, Hx Human Immunodeficiency Virus (HIV), Traveled Outside the [place] in Last 30 Days - Family History Known Family History: Positive: Unknown - adopted, Non-Contributory - Social History Occupation: Employed Full-time Lives: Alone Alcohol Use: None Hx Substance Use: No Substance Use Type: Reports: None Hx Tobacco Use: No Smoking Status (MU): Former Smoker Review of Systems Positive: Chills. Negative: Fever ENT: Negative Cardiovascular: Negative Negative: Palpitations, Chest Pain Positive: Shortness Of Breath, Cough Gastrointestinal: Negative Skin: Negative Neurological: Negative All Other Systems Reviewed And Are Negative: Yes Physical Exam Triage Information Reviewed: Yes Vital Signs On Initial Exam: Initial Vitals Temp Pulse Resp BP Pulse Ox 98.6 F 80 16 145/92 99 07/12/19 06:16 07/12/19 06:16 07/12/19 06:16 07/12/19 06:16 07/12/19 06:16 Vital Signs Reviewed: Yes Appearance: Positive: Well-Appearing - Pt. sitting up in bed in NAD. Anxious. Breathing easily on RA. Skin: Positive: Warm, Dry Head/Face: Positive: Normal Head/Face Inspection Eyes: Positive: Normal, EOMI, OSBALDO ENT: Positive: Pharynx normal, TMs normal Neck: Positive: Supple Respiratory/Lung Sounds: Positive: Other - Diminished breath sounds to right LL. Cardiovascular: Positive: Normal, RRR Musculoskeletal: Positive: Normal, Strength/ROM Intact Neurological: Positive: Normal, CN Intact II-III Psychiatric: Positive: Affect/Mood Appropriate Procedures - Sedation Patient Received Moderate/Deep Sedation with Procedure: No Diagnostics - Vital Signs Vital Signs Temp Pulse Resp BP Pulse Ox 07/12/19 06:30 77 124/69 98 07/12/19 06:29 80 99 07/12/19 06:16 98.6 F 80 16 145/92 99 - Laboratory Result Diagrams: 07/12/19 06:55 07/12/19 06:55 Lab Statement: Any lab studies that have been ordered have been reviewed, and results considered in the medical decision making process. Disposition - Course Course Of Treatment: Pt. with worsening cough and SOB. She is afebrile and well appearing. ECG done at 0724 shows a sinus rhythm of 72bpm, nomral axis, no ST elevation or depression, unchanged from prior tracing. Labs are unremarkable. CXR negative for infiltrate per radiology. Suscpet bronchitis. On re-exam pt. notes she had improvement of cough and SOB after breathing tx. Will rx ventolin and tessalon pearls. Work excuse given. To f.u with pcp in 2-3 days for recheck. Will return to er if sxs change or worsen. pt. understands and agrees with plan. - Differential Dx - Cardiopulmonary Differential Diagnoses - Cardiopulmonary: Acute Dyspnea, Asthma, CAD, CHF, Lower Resp Infection, Myocardial Infarction - Diagnoses Provider Diagnoses: Bronchitis Discharge ED - Sign-Out/Discharge Documenting (check all that apply): Patient Departure - Discharge Plan Condition: Improved Disposition: HOME Prescriptions: Albuterol HFA INHALER* [Ventolin HFA Inhaler*] 2 puff INH Q6H PRN #1 mdi PRN Reason: Shortness Of Breath Benzonatate CAP* [Tessalon 100 MG CAP*] 100 mg PO TID #12 cap Patient Education Materials: Acute Bronchitis (ED) Forms: *Work Release Referrals: Ronnie Figueroa, BASEBALL PLAYER [Primary Care Provider] - Additional Instructions: Follow up with PCP in 3-5 days if symptoms persist Medication as directed Increase fluids and rest Return to ER if symptoms change or worsen - Billing Disposition and Condition Condition: IMPROVED Disposition: Home
[2019-07-12 07:13] LABS: ABS Basophils 0.1 10^3/ul (0-0.2); ABS Eosinophils 0.1 10^3/ul (0-0.6); ABS Lymphocytes 1.1 10^3/ul (1.0-4.8); ABS Monocytes 0.4 10^3/ul (0-0.8); Eosinophil % 1.5 %; Hematocrit 36 % (35-47); Hemoglobin 12.1 g/dL (12.0-16.0); Lymphocyte % 10.9 %; Mean Corpuscular HGB Conc 34 g/dL (31-36); Mean Corpuscular Hemoglobin 29 pg (27-31); Mean Corpuscular Volume 86 fL (80-97); Mean Platelet Volume 7.9 fL (7.4-10.4); Nucleated Red Blood Cells % 0.1; Platelet Count 248 10^3/uL (150-450); Red Blood Count 4.17 10^6 /uL (3.70-4.87); Red Cell Distribution Width 14 % (10-15); White Blood Count 9.7 10^3/uL (3.5-10.8)
[2019-07-12 07:31] LABS: Albumin 4.1 g/dL (3.2-5.2); Albumin/Globulin Ratio 1.2 (1-3); BUN/Creatinine Ratio 22.9 (8-20); C Reactive Protein 6.31 mg/L (<8.01); Calcium 9.3 mg/dL (8.6-10.3); EGFR African American 103.6 (>60); EGFR Non-African American 85.6 (>60); Globulin 3.4 g/dL (2-4); Potassium 3.7 mmol/L (3.5-5.0); Total Bilirubin 0.4 mg/dL (0.2-1.0); Total Protein 7.5 g/dL (6.4-8.9)
[2019-07-12 07:44] VITALS: BP 128/71
== END 2019-07-12 08:05 | disposition home or self-care (01) ==
LOC: ED 06:14
DX: J40 Bronchitis, not specified as acute or chronic (principal); Z88.5 Allergy status to narcotic agent; Z87.891 Personal history of nicotine dependence
CPT/HCPCS: 36415; 71046; 80053; 84484; 85025; 86140; 93005; 99283

== ENCOUNTER 2019-10-21 19:43 | Emergency (ER) | payer BC ==
--- OUTSIDE RECORDS SUMMARY | 2019-10-21 19:47 | XMS REPORT | Continuity of Care Document ---
:1960 External Reference #:[id number] Author Name Marilyn Viramontes NP Address [address] [place] [address] Problems Description No Information Available Social History Type Date Description Comments Sex Unknown Tobacco Use Start: Unknown End: Unknown Former Cigarette Smoker Tobacco Use Start: Unknown End: Unknown Patient is a former smoker Smoking Status Reviewed: 10/13/19 Patient is a former smoker Enjoy Exercising Enjoys exercising Allergies, Adverse Reactions, Alerts Active Allergies Reaction Severity Comments Date Tramadol 08/05/2017 Medications Active Medications SIG Qnty Indications Ordering Date Provider Flovent Diskus take one to two 28units Marilyn Viramontes NP 08/20/2019 inhalations twice a 100mcg/Blist day while you are Aerosol coughing Lorazepam 1/2 to 1 by mouth 30tabs Lucinda Schafer, 06/26/2017 1mg two times a day as PARER-C Tablets needed anxiety Probiotic Unknown Gummies Vitamin B-12 Unknown Tablets Sub Vitamin D-3 Unknown Capsules Immunizations CPT Code Status Date Vaccine Lot # [id number] Given 07/14/2019 Influenza Virus Vaccine, Quadrivalent, 3 Yr > Quad, Preserv Free 32934 Given 10/19/2018 Influenza Virus Vaccine, Quadrivalent, 3 Yr > Quad, Preserv Free 85922 Given 06/18/2017 Influenza Virus Vaccine, Quadrivalent, 3 Yr > Quad, Preserv Free Vital Signs Date Vital Result Comment 10/08/2019 8:16am Weight 179.00 lb Weight 81.194 kg BP Systolic 120 mmHg BP Diastolic 72 mmHg Heart Rate 74 /min Body Temperature 97.8 F Respiratory Rate 16 /min Height 64.5 inches 5'4.50" BMI (Body Mass Index) 30.2 kg/m2 08/20/2019 9:36am Weight 184.00 lb Weight 83.462 kg BP Systolic 130 mmHg BP Diastolic 70 mmHg Heart Rate 66 /min Body Temperature 97.7 F Respiratory Rate 16 /min O2 % BldC Oximetry 97 % Results Test Acquired Date Facility Test Result H/L Range Note CBC Auto 10/08/2019 [facility] White Blood 4.6 10^3/ uL Normal 3.5-10.8 1 Diff [phone] Count Red Blood Count 4.42 10^6/uL Normal 3.70-4.87 Hemoglobin 13.1 g/dL Normal 12.0-16.0 Hematocrit 38 % Normal 35-47 Mean Corpuscular Volume 87 fL Normal 80-97 Mean Corpuscular Hemoglobin 30 pg Normal 27-31 Mean Corpuscular HGB Conc 34 g/dL Normal 31-36 Red Cell Distribution Width 14 % Normal 10-15 Platelet Count 215 10^3/uL Normal 150-450 Mean Platelet Volume 8.9 fL Normal 7.4-10.4 Abs Neutrophils 2.9 10^3/uL Normal 1.5-7.7 Abs Lymphocytes 1.2 10^3/uL Normal 1.0-4.8 Abs Monocytes 0.3 10^3/uL Normal 0-0.8 Abs Eosinophils 0.1 10^3/uL Normal 0-0.6 Abs Basophils 0.0 10^3/uL Normal 0-0.2 Abs Nucleated RBC 0.0 10^3/uL Granulocyte % 63.9 % Lymphocyte % 25.8 % Monocyte % 6.7 % Eosinophil % 2.5 % Basophil % 1.1 % Nucleated Red Blood Cells % 0.0 Comp Metabolic 10/08/2019 [facility] Sodium 138 mmol/ L Normal 135-145 Panel [phone] Potassium 3.9 mmol/L Normal 3.5-5.0 Chloride 104 mmol/L Normal 101-111 Co2 Carbon Dioxide 30 mmol/L Normal 22-32 Anion Gap 4 mmol/L Normal 2-11 Glucose 90 mg/dL Normal 70-100 Blood Urea Nitrogen 13 mg/dL Normal 6-24 Creatinine 0.69 mg/dL Normal 0.51-0.95 BUN/Creatinine Ratio 18.8 Normal 8-20 Calcium 9.4 mg/dL Normal 8.6-10.3 Total Protein 7.3 g/dL Normal 6.4-8.9 Albumin 4.5 g/dL Normal 3.2-5.2 Globulin 2.8 g/dL Normal 2-4 Albumin/Globulin Ratio 1.6 Normal 1-3 Total Bilirubin 0.40 mg/dL Normal 0.2-1.0 Alkaline Phosphatase 54 U/L Normal 34-104 Alt 10 U/L Normal 7-52 Ast 15 U/L Normal 13-39 Egfr Non- 87.1 >60 Egfr 105.4 >60 2 Lipid Profile 10/08/2019 [facility] Triglycerides 67 mg/dL 3 (Trig/Chol/HDL) [phone] Cholesterol 240 mg/dL 4 HDL Cholesterol 72.9 mg/dL 5 LDL Cholesterol 154 mg/dL 6 Laboratory 10/08/2019 [facility] TSH (Thyroid 2.00 Normal 0.34-5.60 7 test finding [phone] Stimulating mcIU/mL Horm) Vitamin D Total 25(Oh) 41.5 ng/mL Normal 20-50 8 Hemoglobin A1c 5.6 % Normal 4.0-5.6 9 CBC Auto 07/12/2019 [facility] White Blood 9.7 10^3/ uL Normal 3.5-10.8 Diff [phone] Count Red Blood Count 4.17 10^6/uL Normal 3.70-4.87 Hemoglobin 12.1 g/dL Normal 12.0-16.0 Hematocrit 36 % Normal 35-47 Mean Corpuscular Volume 86 fL Normal 80-97 Mean Corpuscular Hemoglobin 29 pg Normal 27-31 Mean Corpuscular HGB Conc 34 g/dL Normal 31-36 Red Cell Distribution Width 14 % Normal 10-15 Platelet Count 248 10^3/uL Normal 150-450 Mean Platelet Volume 7.9 fL Normal 7.4-10.4 Abs Neutrophils 8.0 10^3/uL High 1.5-7.7 Abs Lymphocytes 1.1 10^3/uL Normal 1.0-4.8 Abs Monocytes 0.4 10^3/uL Normal 0-0.8 Abs Eosinophils 0.1 10^3/uL Normal 0-0.6 Abs Basophils 0.1 10^3/uL Normal 0-0.2 Abs Nucleated RBC 0.0 10^3/uL Granulocyte % 82.3 % Lymphocyte % 10.9 % Monocyte % 4.4 % Eosinophil % 1.5 % Basophil % 0.9 % Nucleated Red Blood Cells % 0.1 Comp Metabolic 07/12/2019 [facility] Sodium 136 mmol/ L Normal 135-145 Panel [phone] Potassium 3.7 mmol/L Normal 3.5-5.0 Chloride 103 mmol/L Normal 101-111 Co2 Carbon Dioxide 26 mmol/L Normal 22-32 Anion Gap 7 mmol/L Normal 2-11 Glucose 112 mg/dL High 70-100 Blood Urea Nitrogen 16 mg/dL Normal 6-24 Creatinine 0.70 mg/dL Normal 0.51-0.95 BUN/Creatinine Ratio 22.9 High 8-20 Calcium 9.3 mg/dL Normal 8.6-10.3 Total Protein 7.5 g/dL Normal 6.4-8.9 Albumin 4.1 g/dL Normal 3.2-5.2 Globulin 3.4 g/dL Normal 2-4 Albumin/Globulin Ratio 1.2 Normal 1-3 Total Bilirubin 0.40 mg/dL Normal 0.2-1.0 Alkaline Phosphatase 63 U/L Normal 34-104 Alt 12 U/L Normal 7-52 Ast 16 U/L Normal 13-39 Egfr Non- 85.6 >60 Egfr 103.6 >60 10 Laboratory test 07/12/2019 [facility] C Reactive 6.31 mg/L Normal <8.01 finding [phone] Protein Troponin-I (TnI) 0.00 ng/mL <0.04 11 Poc Urinalysis 06/30/2019 [facility] Poc Glucose, Negative Negative [phone] Urine Poc Bilirubin, Urine Negative Negative Poc Ketone, Urine Negative Negative Poc Specific [place], Urine 1.025 Normal 1.010-1.030 Poc Blood, Urine 1+ Abnormal Negative Poc pH, Urine 5.0 Normal 5-9 Poc Protein, Urine Negative Negative Poc Urobilinogen, Urine 0.2 Negative Poc Nitrite, Urine Negative Negative Poc Leukocytes, Urine Trace Abnormal Negative Poc Color, Urine Yellow Poc Clarity, Urine Clear 12 Urine Culture And 06/30/2019 [facility] Urine Culture SEE RESULT 13, 14 Sensitivities [phone] BELOW 1 [id number] 2 Because ethnic data is not always readily available, this report includes an eGFR for both -Americans and non- Americans. The National Kidney Disease Education Program (NKDEP) does not endorse the use of the MDRD equation for patients that are not between the ages of 18 and 70, are , have extremes of body size, muscle mass, or nutritional status, or are non- or non-. According to the National Kidney Foundation, irrespective of diagnosis, the stage of the disease is based on the level of kidney function: Stage Description GFR(mL/min/1.73 m(2)) 1 Kidney damage with normal or decreased GFR 90 2 Kidney damage with mild decrease in GFR 60-89 3 Moderate decrease in GFR 30-59 4 Severe decrease in GFR 15-29 5 Kidney failure <15 (or dialysis) 3 Desirable: <150 Borderline High: 150-199 High: 200-499 Very High: >500 4 Desirable: <200 Borderline High: 200-239 High: >239 5 Low: <40 Desirable: 40-60 High: >60 6 Desirable: <100 Near Optimal: 100-129 Borderline High: 130-159 High: 160-189 Very High: >189 7 [id number] 8 Total 25-Hydroxyvitamin D2 and D3 (25-OH-VitD) <10 ng/mL (severe deficiency) 10-19 ng/mL (mild to moderate deficiency) 20-50 ng/mL (optimum levels) 51-80 ng/mL (increased risk of hypercalciuria) >80 ng/mL (toxicity possible) 9 Therapeutic target for the treatment of diabetes mellitus patients is <7% HBA1C, and in selective patients <6.0%. Please refer to [place] Diabetes Association diabetic care guidelines for further information. 10 Because ethnic data is not always readily available, this report includes an eGFR for both -Americans and non- Americans. The National Kidney Disease Education Program (NKDEP) does not endorse the use of the MDRD equation for patients that are not between the ages of 18 and 70, are , have extremes of body size, muscle mass, or nutritional status, or are non- or non-. According to the National Kidney Foundation, irrespective of diagnosis, the stage of the disease is based on the level of kidney function: Stage Description GFR(mL/min/1.73 m(2)) 1 Kidney damage with normal or decreased GFR 90 2 Kidney damage with mild decrease in GFR 60-89 3 Moderate decrease in GFR 30-59 4 Severe decrease in GFR 15-29 5 Kidney failure <15 (or dialysis) 11 Troponin-I testing on Plasma Separator Tubes (PST) has a known false positive rate of 0.20-0.40%. All positive troponins reflex immediately to secondary confirmatory testing. Using the PV Nano Cell DxI 800 Access Immunoassay systems, the 99th percentile upper reference limit was demonstrated to be < 0.03 ng/mL. 12 Light Bulb Replacer: [id number] SEE RESULT BELOW Name: HEATHER PARSONS : [address]: Pranav Croft MD Acct: [id number] Unit: [id number] AGE: 59 [facility] Re06/30/19 SEX: F Status: DEP ER SPEC: [id number] [place]: 06/30/19-[address] [facility] [address]: Rasheed MAI REQ: [id number] RECD: 07/01/19 STATUS:BRITNEY ELMORE DR: Ronnie Croft MD _ SOURCE: URINE SPDESC: ORDERED: Urine Culture COMMENTS: [id number] Procedure Result Reported Site Urine Culture Final 07/02/19- 1228 ML No Growth (<1,000 CFU/mL) * ML - Main Lab . END OF REPORT DEPARTMENT OF PATHOLOGY, [address] [place] [address] Camron Restrepo M.D. Director [facility] # [id number] Procedures Date Code Description Status 08/20/2019 40045 Spirometry Completed 08/25/2016 90841245 Mammogram Completed 08/25/2012 06408390 Colonoscopy Completed Medical Devices Description No Information Available Encounters Type Date Location Provider Dx Diagnosis Office Visit 08/20/2019 9:30a Main Office Marilyn Viramontes NP R05 Cough Assessments Date Code Description Provider 10/08/2019 Z00.00 Encounter for general adult medical examination Marilyn Viramontes NP without abnormal findings 10/08/2019 M25.552 Pain in left hip Marilyn Viramontes NP 08/20/2019 R05 Cough Marilyn Viramontes NP Plan of Treatment 10/08/2019 - Marilyn Viramontes NPZ00.00 Encounter for general adult medical examination without abnormal findingsNew Xrays:Mammography, Screening; Bilateral , Ordered: 10/08/19New Therapy:Follow up:PT to eval. & treat for ongoing left hip pain Has mammo ordered See her in one yr for PE &BWM25.552 Pain in left hipComments:discussed future imaging of her left hip if pain persists and/or no improvement after she sees PT Functional Status Description No Information Available Mental Status Description No Information Available Referrals Refer to Dr Reason for Referral Status Appt Date Pieretti, Mary Referral to Ast[facility] & Allergy to discuss testing Scheduled 11/03/2019 for possible mold exposure. - - Please contact Pt to schedule an appointment. - - Please fax appointment date/time to [facility] [address] [place], [place] [id number] [phone]
[2019-10-21 19:58] VITALS: BP 150/84
--- NOTE | 2019-10-21 20:03 | UC ---
Laceration HPI - HPI Summary HPI Summary: 59 yo female presents with finger laceration. She tells me that about 30min [employer] she was cleaning a blade of one of her hair dressing supplies and sustained a laceration to her left middle finger pad. She bandaged the area and came to . Unsure the date of her last tetanus. - History Of Current Complaint Chief Complaint: UCLaceration Stated Complaint: FINGER INJURY Time Seen by Provider: 10/21/19 20:03 Hx Obtained From: Patient Laceration Location: Finger Mechanism Of Injury: Sharp Trauma Onset/Duration: Sudden Onset Severity: Mild Pain Intensity: 4 Pain Scale Used: 0-10 Numeric - Allergies/Home Medications Allergies/Adverse Reactions: Allergies Allergy/AdvReac Type Severity Reaction Status Date / Time ketorolac [From Toradol] AdvReac Diarrhea Verified 10/21/19 19:59 Home Medications: Home Medications Ibuprofen 400 mg PO Q6HR PRN 06/30/19 [History Confirmed 10/21/19] LORazepam TAB(*) [Ativan 0.5 MG TAB (*)] 0.5 mg PO BEDTIME PRN 10/21/19 [ History Confirmed 10/21/19] PMH/Surg Hx/FS Hx/Imm Hx Psychological History: Anxiety - Surgical History Surgical History: Yes Surgery Procedure, Year, and Place: TUBAL LIGATION. WIDSOM TEET - Family History Known Family History: Positive: Unknown - adopted - Social History Occupation: Employed Full-time Lives: With Family Alcohol Use: None Substance Use Type: None Smoking Status (MU): Former Smoker Review of Systems All Other Systems Reviewed And Are Negative: No Constitutional: Positive: Negative Skin: Positive: Other - Laceration finger Respiratory: Positive: Negative Cardiovascular: Positive: Negative Neurovascular: Positive: Negative Musculoskeletal: Positive: Negative Neurological/Mental Status: Positive: Negative Physical Exam - Summary Physical Exam Summary: GENERAL: NAD. WDWN. No pain distress. SKIN: LEFT MIDDLE FINGER: Finger pad with 7mm vertical very superficial laceration with mild active bleeding. Very well approximated at rest. No subcutaneous tissue exposed. CHEST: No accessory muscle use. Breathing comfortably and in no distress. CV: Pulses intact. Cap refill <2seconds NEURO: Alert. PSYCH: Age appropriate behavior. Triage Information Reviewed: Yes Vital Signs: Initial Vital Signs Temp 98.3 F 10/21/19 19:55 Pulse 75 10/21/19 19:55 Resp 16 10/21/19 19:55 BP 150/84 10/21/19 19:55 Pulse Ox 98 10/21/19 19:55 Vital Signs Reviewed: Yes Laceration Repair - Laceration Repair 1 Description: Linear Laceration Size After Repair: Length (cm) - 0.7 Modified For Repair: No Irrigation With Pressure Irrigation Device: Yes Closure Material: Skin Adhesive Closure Method: Single Layer Suture Of: Skin Laceration Course/Dx - Course/Dx Course Of Treatment: Wound irrigated with saline. Dermabond applied. Bandaged with telfa and tubegauze. tdap updated today - Diagnosis Provider Diagnosis: Finger laceration Discharge ED - Sign-Out/Discharge Documenting (check all that apply): Patient Departure All imaging exams completed and their final reports reviewed: No Studies - Discharge Plan Condition: Stable Disposition: HOME Patient Education Materials: Skin Adhesive Care (ED) Referrals: Ronnie Figueroa, GIZZARD PEELER [Primary Care Provider] - Additional Instructions: If you develop a fever, shortness of breath, chest pain, new or worsening symptoms - please call your PCP or go to the ED immediately. Your blood pressure was high at todays visit. Please see your primary provider within 4 weeks for recheck and re-evaluation. Change the dressing and apply a band-aid daily until well healed (likely5-7 days ) Your tetanus shot was updated today - Billing Disposition and Condition Condition: STABLE Disposition: Home
[2019-10-21] MEDS ORDERED: Tetan/Diph/Pertus SYR(Tdap)* 0.5 ML SYR(BOOSTRIX) use SYR contains LATEX IM ONE (20:39)
== END 2019-10-21 21:03 | disposition home or self-care (01) ==
LOC: UCEAST 19:43
DX: S61.213A Laceration without foreign body of left middle finger without damage to nail, initial encounter (principal); Z23 Encounter for immunization; W26.9XXA Contact with unspecified sharp object(s), initial encounter; Y92.9 Unspecified place or not applicable; Z88.6 Allergy status to analgesic agent; Z87.891 Personal history of nicotine dependence
CPT/HCPCS: 12001; 90715; 99211; G0463